=== PATIENT | female | born 1975 | race Two or more races ===

== ENCOUNTER 2024-11-25 14:17 | Emergency (ER) | payer MEDICAID, SELFPAY ==
[2024-11-25 14:35] VITALS: BP 154/97; PULSE 88; RESP 18; TEMP 36.7; O2SAT 99
--- NOTE | 2024-11-25 14:48 | PD.EDRME ---
Rapid Medical Screening Exam RME Arrival date/time: 11/25/24 14:17 Chief Complaint: Vaginal Bleeding Time Seen by Provider: 11/25/24 14:28 Vital signs: Vital Signs Temperature 98.1 F 11/25/24 14:35 Pulse Rate 88 11/25/24 14:35 Respiratory Rate 18 11/25/24 14:35 Blood Pressure 154/97 H 11/25/24 14:35 Pulse Oximetry (%) 99 11/25/24 14:35 Oxygen Delivery Method Room Air 11/25/24 14:35 Vital signs reviewed by provider: Yes RME Narrative: 49-year-old female presents with a 12-day history of severe vaginal bleeding. She is fully soaking a maxi pad, brief and tampon with at least 2-3 times per hour. She is complaining of a headache and feeling overall heaviness. She denies any chance of .
--- NOTE | 2024-11-25 14:49 | XR_ITS ---
Examination: Pelvic ultrasound, transabdominal, complete Technique: Transabdominal ultrasound of the pelvis performed using grayscale imaging Date and time of exam: November 25, 2024 1547 hours INDICATIONS: Vaginal bleeding beginning 12 days ago FINDINGS: Uterus 9.3 cm endometrial stripe 1.7 cm No uterine mass or intrauterine gestation Right ovary 3.3 cm arterial flow 15 mm follicular cyst Left ovary 5.4 cm arterial flow, 5.4 x 3.0 x 4.3 cm simple cyst IMPRESSION: Left ovarian simple cyst 5.4 x 3.0 x 4.3 cm
--- NOTE | 2024-11-25 15:13 | EDNOTE_ITS ---
ED OB Contraction Preg RMI/HPI General Chief complaint: Vaginal Bleeding Stated complaint: SEVERE VAGINAL BLEEDING X 12 DAYS, PASSING CLOTS Time Seen by Provider: 11/25/24 14:28 Arrival date/time: 11/25/24 14:17 49-year-old female presents with a 12-day history of severe vaginal bleeding. She is fully soaking a maxi pad, brief and tampon at least 2-3 times per hour. She is complaining of a headache and feeling overall heaviness. She denies any chance of . Labs including CBC, CMP and urine hCG as well as pelvic ultrasound have been ordered and pending. Mode of arrival: ambulatory Limitations: no limitations RME / HPI RME / HPI Narrative: 49-year-old female presents with a 12-day history of severe vaginal bleeding. She is fully soaking a maxi pad, brief and tampon with at least 2-3 times per hour. She is complaining of a headache and feeling overall heaviness. She denies any chance of . Related Data Previous Rx's ?Medication ?Instructions ?Recorded pantoprazole 40 mg tablet,delayed 40 mg PO QDAY #30 ta bs 08/18/22 release medroxyprogesterone 10 mg tablet 10 mg PO QDAY #10 tab s 11/25/24 (Provera) Allergies Allergy/AdvReac Type Severity Reaction Status Date / Time No Known Allergies Allergy Verified 12/12/24 13:48 Review of Systems Review of Systems Systems Reviewed: All systems reviewed, normal except as documented Past Medical History Past Medical History NEUROLOGIC: Negative Neurological Disorders or Seizures CARDIAC: Negative Cardiac Disorders or Congestive Heart Failure RESPIRATORY: Negative Chronic Obstructive Pulmonary Disease (COPD) GENITOURINARY: Negative Genitourinary Disorders or Renal Disease REPRODUCTIVE: Negative Pelvic Inflammatory Disease MUSCULOSKELETAL: Negative Musculoskeletal Disorders ENDOCRINE: Negative Endocrine Disorders, Diabetes Mellitus Type 1 or Diabetes Mellitus Type 2 HEMATOLOGIC: Positive Blood Disorders and Anemia OTHER HISTORY: Positive Blood Transfusions; Negative Autoimmune Disease, Blood Transfusion Reaction, Anesthesia Reactions, MRSA or Clostridium Difficile Family History FAMILY HISTORY: Positive Family Cardiac Disorders and Family Gastrointestinal Problems (GI BLEED -FATHER); Negative Family Psychiatric Problems Surgical History SURGICAL: Positive Abdominal Surgery (TUMMY TUCK) and Section (X3); Negative Cardiac Surgery, Endocrine Surgery, Ear Surgery, Nephrectomy, Joint Replacement, Neurologic Surgery or Mastectomy Social History SMOKING STATUS: Never smoker SECOND HAND EXPOSURE: No ED Exam Narrative Physical exam: Pleasant 49-year-old female, no acute distress. CV regular rate and rhythm without murmurs, lungs are clear, abdomen is soft with mild pelvic tenderness bilaterally as well as the suprapubic area. Conjunctiva is mildly pale. General Limitations: Present no limitations Course Course Course Narrative: 49-year-old female presents with a 12-day history of severe vaginal bleeding. She is fully soaking a maxi pad, brief and tampon with at least 2-3 times per hour. She is complaining of a headache and feeling overall heaviness. She denies any chance of . Yenifer 49-year-old female, no acute distress. CV regular rate and rhythm without murmurs, lungs are clear, abdomen is soft with mild pelvic tenderness bilaterally as well as the suprapubic area. Conjunctiva is mildly pale. Vital signs blood pressure 134/97, pulse 88, respirations 18, temp 98.1, O2 sat 99% on room air. Labs including CBC, CMP and urine hCG as well as pelvic ultrasound have been ordered and pending. Labs reveal normal white count with a mildly low H&H of 10.6/31.3 with normal platelets CMP is essentially normal. Urine hCG is negative. Pelvic ultrasound reveals Pelvic ultrasound reveals: Left ovarian simple cyst 5.4 x 3.0 x 4.3 cm Quality Measures none Orders Category Date Time Status Miscellaneous Nursing Order NOW Care 11/25/24 14:51 Completed US pelvic complete Stat Exams 11/25/24 14:49 Completed CBC Stat Lab 11/25/24 15:34 Completed CMP [Comprehensive Metabolic Panel] Stat Lab 11/25/24 15:34 Completed HCG Qualitative,Urine Stat Lab 11/25/24 16:19 Completed Vital Signs Vital signs: Vital Signs Temperature 98.1 F 11/25/24 14:35 Pulse Rate 88 11/25/24 14:35 Respiratory Rate 18 11/25/24 14:35 Blood Pressure 154/97 H 11/25/24 14:35 Pulse Oximetry (%) 99 11/25/24 14:35 Oxygen Delivery Method Room Air 11/25/24 14:35 Vaginal Bleeding MDM Narrative MDM Narrative: 49-year-old female presents with a 12-day history of severe vaginal bleeding. She is fully soaking a maxi pad, brief and tampon with at least 2-3 times per hour. She is complaining of a headache and feeling overall heaviness. She denies any chance of . Pleasant 49-year-old female, no acute distress. CV regular rate and rhythm without murmurs, lungs are clear, abdomen is soft with mild pelvic tenderness bilaterally as well as the suprapubic area. Conjunctiva is mildly pale. Labs including CBC, CMP and urine hCG as well as pelvic ultrasound have been ordered and pending. Labs reveal normal white count with a mildly low H&H of 10.6/31.3 with normal platelets CMP is essentially normal. Urine hCG is negative. Pelvic ultrasound reveals: Left ovarian simple cyst 5.4 x 3.0 x 4.3 cm Patient will be discharged with a Provera challenge of 10 mg p.o. daily x 10 days. Patient data External records reviewed:: None Clinical information provided by:: patient Social determinants that could affect healthcare access:: none Patient has the following chronic illnesses:: GERD, previous history of menorrhagia within the past year. How is presenting disease/condition affected by chronic disease/condition?: uneffected by Evaluation data The following diagnostics were reviewed and interpreted by me:: lab results and radiology exam(s) Lab and/or radiology exams considered but not ordered:: None Interpretation Summary: Labs reveal normal white count with a mildly low H&H of 10.6/31.3 with normal platelets CMP is essentially normal. Urine hCG is negative. Pelvic US: FINDINGS: Uterus 9.3 cm endometrial stripe 1.7 cm No uterine mass or intrauterine gestation Right ovary 3.3 cm arterial flow 15 mm follicular cyst Left ovary 5.4 cm arterial flow, 5.4 x 3.0 x 4.3 cm simple cyst IMPRESSION: Left ovarian simple cyst 5.4 x 3.0 x 4.3 cm Medications / Prescriptions Medications or Prescriptions considered but not ordered:: None Medication administrations:: None Consultations Consultation(s) initiated? (list below): No Diagnosis Vaginal Bleeding Differential Diagnosis: dysfunctional uterine bleeding, vaginal bleeding and other (Menorrhagia, perimenopause) Most likely diagnosis given after review of the tests above:: Dysfunctional uterine bleeding secondary to ovarian cyst, menorrhagia Admission Indicated Admission indicated?: not indicated Explain why admission is indicated or not indicated:: Patient is stable for discharge Admission Request Was there a request for admission?: No Admission Attestation Admission request attestation: N/A Disposition Plan Disposition Plan: Discharge Discharge Attestation Discharge Attestation: The patient and all family members were given an opportunity to ask questions and understood the discharge instructions. Discharge instructions specifically effects, indications for sooner follow up or return to the emergency department, and the expected course of current diagnosis. Patient condition: Stable Discharge Plan Plan Patient Disposition: HOME (Self Care) Discharge Disposition comment: Stable Prescriptions/Referrals Prescriptions/Med Rec: New medroxyprogesterone [Provera] 10 mg tablet 10 mg PO QDAY Qty: 10 0RF No Action pantoprazole 40 mg tablet,delayed release (DR/EC) 40 mg PO QDAY Qty: 30 2RF Referrals: No Primary/Family,Physician [Primary Care Provider] - In 1 week Problem List Clinical Impression: Perimenopausal menorrhagia, Dysfunctional uterine bleeding Patient/Caregiver Discharge Instructions Education Materials: ED Dysfunctional Uterine Bleeding Additional Instructions: Follow-up with your primary care physician in 24 to 48 hours. Return to the ED for any new or worsening symptoms. Print Language: [place] Stand Alone Forms: Kathleen Award Info., Patient Portal Info Letter PA/CARY Supervising Physician STEPHANIE/CARY Supervising Physician: Dr. Naylor
[2024-11-25 15:47] LABS: Basophils # (Auto) 0.1 Thou/mm3 (0.0-0.2); Basophils % (Auto) 1 % (0-2.5); Eosinophils # (Auto) 0.1 Thou/mm3 (0.0-0.5); Eosinophils % (Auto) 1 % (0-10); Hematocrit 31.3 % (36.0-46.0); Hemoglobin 10.6 g/dL (12.0-16.0); Immature Granulocytes % (Auto) 0 % (0-0); Immature Granulocytes Auto 0.02 Thou/mm3 (0.00-0.00); Lymphocytes # (Auto) 2.1 Thou/mm3 (1.0-4.8); Lymphocytes % (Auto) 28 % (10-50); Mean Corpuscular HGB Conc 33.9 g/dl (31.0-37.0); Mean Corpuscular Hemoglobin 28.2 pg (25.0-35.0); Mean Corpuscular Volume 83 fL (80-100); Monocytes % (Auto) 13 % (0-12); Neutrophils # (Auto) 4.3 Thou/mm3 (1.8-7.7); Neutrophils % (Auto) 57 % (37-80); Nucleated Red Blood Cell % 0 /100 WBC (0); Platelet Count 254 Thou/mm3 (140-440); RDW Standard Deviation 43.8 fL (36.4-46.3); Red Blood Count 3.76 Miln/mm3 (4.00-5.20); White Blood Count 7.6 Thou/mm3 (3.6-11.0)
[2024-11-25 16:24] LABS: Alanine Aminotransferase 20 U/L (10-49); Albumin, Serum 4.1 gm/dL (3.5-5.0); Albumin/Globulin Ratio 1.5 (1.2-2.2); Alkaline Phosphatase 69 U/L (46-116); Anion Gap 4 (7-16); Aspartate Amino Transferase 23 U/L (0-34); BUN/Creatinine Ratio 14 Ratio (12-20); Bilirubin,Total 0.3 mg/dL (0.3-1.2); Blood Urea Nitrogen 11 mg/dL (9-23); Calcium 8.8 mg/dL (8.3-10.6); Calcium (Corrected) 8.8 mg/dL (8.5-10.1); Carbon Dioxide 26.8 mMol/L (20.0-31.0); Chloride 105 mMol/L (98-107); Creatinine (Component) 0.8 mg/dL (0.6-1.3); Globulin 2.7 gm/dL (2.3-3.5); Glucose 95 mg/dL (74-106); Osmolality,Calculated 271 (275-295); Potassium 3.8 mMol/L (3.4-5.1); Sodium 136 mMol/L (136-145); Total Protein 6.8 gm/dL (5.7-8.2); eGFR > 60 See Note
[2024-11-25 16:55] LABS: HCG Qualitative,Urine Negative
== END 2024-11-25 17:53 | disposition home or self-care (01) ==
PROVIDERS: Physician Assistant; Emergency Provider Family Medicine
DX: N83.292 Other ovarian cyst, left side (principal); N92.4 Excessive bleeding in the premenopausal period
CPT/HCPCS: 36415; 76856; 80053; 81025; 85025; 99284

== ENCOUNTER 2024-12-12 13:45 | Emergency (ER) | payer MEDICAID, SELFPAY ==
[2024-12-12] VITALS (10 sets, daily range): BP systolic 111–134; BP diastolic 59–87; PULSE 69–92; RESP 15–22; TEMP 36.7–37.3; O2SAT 97–100; BMI 26.2
--- NOTE | 2024-12-12 14:17 | XR_ITS ---
Examination: Pelvic ultrasound, transabdominal, complete Technique: Transabdominal ultrasound of the pelvis performed using grayscale imaging Date and time of exam: December 12, 2024 1442 hours INDICATIONS: Vaginal bleeding and tenderness beginning 28 days ago FINDINGS: Uterus 8.0 cm endometrial sign 0.6 cm No uterine mass or intrauterine gestation Right ovary 3.2 cm arterial flow 14 mm follicular cyst Left ovary 3.9 cm arterial flow 16mm follicular cyst IMPRESSION: No uterine mass or intrauterine gestation
--- NOTE | 2024-12-12 14:18 | PD.EDRME ---
Rapid Medical Screening Exam E Arrival date/time: 12/12/24 13:45 49-year-old female with no known medical history presents to the emergency room with a chief complaint of vaginal bleeding x 1 month. Patient is being seen by her CONTROL SYSTEMS DESIGNER who sent her to the emergency room due to a low hemoglobin level. I have greeted and performed a focused initial assessment of this patient. A comprehensive ED assessment and evaluation of the patient, analysis of all test results, and completion of the medical decision making process will be conducted by additional ED providers. Chief Complaint: Vaginal Bleeding Vital signs: Vital Signs Temperature 98.8 F 12/12/24 14:06 Pulse Rate 75 12/12/24 14:06 Respiratory Rate 16 12/12/24 14:06 Blood Pressure 131/81 H 12/12/24 14:06 Pulse Oximetry (%) 99 12/12/24 14:06 Oxygen Delivery Method Room Air 12/12/24 14:06 Vital signs reviewed by provider: Yes
[2024-12-12] MEDS: ONDANSETRON ODT 4 MG TABRAP PO (14:20)
[2024-12-12 16:13] LABS: Alanine Aminotransferase 17 U/L (10-49); Albumin, Serum 4.1 gm/dL (3.5-5.0); Albumin/Globulin Ratio 1.7 (1.2-2.2); Alkaline Phosphatase 56 U/L (46-116); Anion Gap 8 (7-16); Aspartate Amino Transferase 15 U/L (0-34); BUN/Creatinine Ratio 9 Ratio (12-20); Bilirubin,Total 0.4 mg/dL (0.3-1.2); Blood Urea Nitrogen 7 mg/dL (9-23); Calcium 8.3 mg/dL (8.3-10.6); Calcium (Corrected) 8.3 mg/dL (8.5-10.1); Carbon Dioxide 23.2 mMol/L (20.0-31.0); Chloride 109 mMol/L (98-107); Creatinine (Component) 0.8 mg/dL (0.6-1.3); Estimated Creatinine Clearance 86.1 mL/min (>60); Globulin 2.4 gm/dL (2.3-3.5); Glucose 93 mg/dL (74-106); Osmolality,Calculated 277 (275-295); Sodium 140 mMol/L (136-145); Total Protein 6.5 gm/dL (5.7-8.2); eGFR > 60 See Note
[2024-12-12 16:16] LABS: Basophils # (Auto) 0.1 Thou/mm3 (0.0-0.2); Basophils % (Auto) 1 % (0-2.5); Eosinophils # (Auto) 0.1 Thou/mm3 (0.0-0.5); Eosinophils % (Auto) 1 % (0-10); Immature Granulocytes % (Auto) 0 % (0-0); Immature Granulocytes Auto 0.02 Thou/mm3 (0.00-0.00); Lymphocytes % (Auto) 30 % (10-50); Mean Corpuscular HGB Conc 31.2 g/dl (31.0-37.0); Mean Corpuscular Hemoglobin 25.6 pg (25.0-35.0); Mean Corpuscular Volume 82 fL (80-100); Monocytes # (Auto) 0.6 Thou/mm3 (0.0-0.8); Monocytes % (Auto) 9 % (0-12); Neutrophils % (Auto) 59 % (37-80); Nucleated Red Blood Cell # 0.03 Thou/mm3 (0.00-0.00); Nucleated Red Blood Cell % 0 /100 WBC (0); Platelet Count 359 Thou/mm3 (140-440); RDW Standard Deviation 47.1 fL (36.4-46.3); Red Blood Count 2.46 Miln/mm3 (4.00-5.20); White Blood Count 6.8 Thou/mm3 (3.6-11.0)
[2024-12-12 16:22] LABS: Hematocrit 20.2 % (36.0-46.0); Hemoglobin 6.3 g/dL (12.0-16.0)
[2024-12-12 16:35] LABS: Path Review Blood Smear Sent to Pathologist
[2024-12-12 17:12] LABS: HCG,Qualitative Serum Negative
[2024-12-12 17:20] LABS: Partial Thromboplastin Time 22.1 Seconds (22.0-36.0)
[2024-12-12 19:21] LABS: Hematocrit 19.2 % (36.0-46.0); Hemoglobin 5.9 g/dL (12.0-16.0)
--- NOTE | 2024-12-12 20:16 | PD.EDVAGBL ---
ED OB Contraction Preg RMI/HPI General Chief complaint: Vaginal Bleeding Stated complaint: Vaginal bleeding low Hgb per OBGYN Arrival date/time: 12/12/24 13:45 RME / HPI RME / HPI Narrative: 12/12/24 13:45 49-year-old female with no known medical history presents to the emergency room with a chief complaint of vaginal bleeding x 1 month. Patient is being seen by her UNDERGROUND MINE MACHINERY MECHANIC who sent her to the emergency room due to a low hemoglobin level. I have greeted and performed a focused initial assessment of this patient. A comprehensive ED assessment and evaluation of the patient, analysis of all test results, and completion of the medical decision making process will be conducted by additional ED providers. Dr. Santo?s Main ED Evaluation: 49yo female presents to the ED for a chief complaint of vaginal bleeding x 20 days. Patient states she's attempted to make an appointment with her UNDERGROUND MINE MACHINERY MECHANIC due to her persistent vaginal bleeding, but was unable to get an appointment, so she came in for evaluation. Patient reports feeling generally weak. She denies any chest pain, shortness of breath or any other associated symptoms. Patient does report previously needing blood transfusions, her last one being in August. She is not on any control. NKA. Related Data Previous Rx's ?Medication ?Instructions ?Recorded pantoprazole 40 mg tablet,delayed 40 mg PO QDAY #30 tabs 08/18/22 release medroxyprogesterone 10 mg tablet 10 mg PO QDAY #10 tabs 11/25/24 (Provera) Allergies Allergy/AdvReac Type Severity Reaction Status Date / Time No Known Allergies Allergy Verified 12/12/24 13:48 Review of Systems Review of Systems Systems Reviewed: All systems reviewed, normal except as documented Past Medical History Past Medical History NEUROLOGIC: Negative Neurological Disorders or Seizures CARDIAC: Negative Cardiac Disorders or Congestive Heart Failure RESPIRATORY: Negative Chronic Obstructive Pulmonary Disease (COPD) GENITOURINARY: Negative Genitourinary Disorders or Renal Disease REPRODUCTIVE: Negative Pelvic Inflammatory Disease MUSCULOSKELETAL: Negative Musculoskeletal Disorders ENDOCRINE: Negative Endocrine Disorders, Diabetes Mellitus Type 1 or Diabetes Mellitus Type 2 HEMATOLOGIC: Positive Blood Disorders and Anemia OTHER HISTORY: Positive Blood Transfusions; Negative Autoimmune Disease, Blood Transfusion Reaction, Anesthesia Reactions, MRSA or Clostridium Difficile Family History FAMILY HISTORY: Positive Family Cardiac Disorders and Family Gastrointestinal Problems (GI BLEED -FATHER); Negative Family Psychiatric Problems Surgical History SURGICAL: Positive Abdominal Surgery (TUMMY TUCK) and Section (X3); Negative Cardiac Surgery, Endocrine Surgery, Ear Surgery, Nephrectomy, Joint Replacement, Neurologic Surgery or Mastectomy Social History SMOKING STATUS: Never smoker SECOND HAND EXPOSURE: No ED Exam Narrative Physical exam: GENERAL APPEARANCE: AxOx4, generally well-appearing, no acute distress. HEENT: NC, AT. MMM. EOMI, clear conjunctiva, oropharynx clear. NECK: Supple without lymphadenopathy. No stiffness or restricted ROM. HEART: Normal rate and regular rhythm, normal S1/S1, no m/r/g LUNGS: CTAB, moving air well. No crackles or wheezes are heard. ABDOMEN: Soft, nontender, nondistended with good bowel sounds heard. BACK: No midline C/T/L spine pain or deformity, No CVAT, no obvious deformity. EXTREMITIES: Without cyanosis, clubbing or edema. MUSCULOSKELETAL: FROM of all major joints, no chest tenderness NEUROLOGICAL: Grossly nonfocal. Alert and oriented, moving all 4 extremities. CN not formally tested but appear grossly intact. Skin: Warm and dry without any rash. Mild pallor. Course Course Course Narrative: Observation began at 2014 and was necessary in order to monitor the patient while she receives a blood transfusion. Upon reevaluation, observation revealed that the patient should be discharged home. Patient has remained stable while under my care. Observation time ended at 0115. Total time of observation 5 hours. Quality Measures none Orders Category Date Time Status Insert IV NOW Care 12/12/24 18:44 Active Transfuse,blood/blood products NOW Care 12/12/24 18:44 Active US pelvic complete Stat Exams 12/12/24 14:17 Completed Antibody Identification Stat Lab 12/12/24 15:38 Completed CBC Stat Lab 12/12/24 15:38 Completed CMP [Comprehensive Metabolic Panel] Stat Lab 12/12/24 15:38 Completed HCG,Qualitative Serum Stat Lab 12/12/24 15:38 Completed Hemoglobin and Hematocrit Stat Lab 12/12/24 18:58 Completed PT [Prothrombin Time with INR] Stat Lab 12/12/24 15:38 Completed PTT [Partial Thromboplastin Time] Stat Lab 12/12/24 15:38 Completed Path Review Blood Smear Stat Lab 12/12/24 15:38 Completed Type and Screen Stat Lab 12/12/24 15:38 Completed prbc [Red Blood Cells] Stat Lab 12/12/24 15:38 Completed Ondansetron Odt [Zofran Odt] Med 12/12/24 14:13 Discontinued 4 mg PO X1 ONE Vital Signs Vital signs: Vital Signs Temperature 98.8 F 12/12/24 14:06 Pulse Rate 75 12/12/24 14:06 Respiratory Rate 16 12/12/24 14:06 Blood Pressure 131/81 H 12/12/24 14:06 Pulse Oximetry (%) 99 12/12/24 14:06 Oxygen Delivery Method Room Air 12/12/24 14:06 Vaginal Bleeding MDM Narrative MDM Narrative: Scribe Attestation: 12/12/24 - Cecelia Amaya am scribing for and in the presence of Dr. Santo. Patient data External records reviewed:: [facility] previous records (Per chart review, patient was seen here on 11/25/24 for dysfunctional uterine bleeding.) Clinical information provided by:: patient Social determinants that could affect healthcare access:: none Patient has the following chronic illnesses:: none How is presenting disease/condition affected by chronic disease/condition?: no chronic disease Evaluation data The following diagnostics were reviewed and interpreted by me:: lab results and radiology exam(s) Lab and/or radiology exams considered but not ordered:: none Interpretation Summary: HnH is low at 5.9/19.2, Platelets are normal, PT and INR are normal, PTT is normal, CMP is normal, HCG is negative, according to my interpretation. ------- [place] [facility] Report Signed Patient: CHIOMA DENNIS. Record#: [id number] Birthdate: 1975 Age/Sex: 49 / F Location: [facility] Attending Dr: Ordering Physician: Gabe Najera Date of Service: 12/12/24 Procedure(s): US pelvic complete Accession Number(s): [id number] cc: Gabe Najera; Guzman Harrison MD~ Examination: Pelvic ultrasound, transabdominal, complete Technique: Transabdominal ultrasound of the pelvis performed using grayscale imaging Date and time of exam: December 12, 2024 1442 hours INDICATIONS: Vaginal bleeding and tenderness beginning 28 days ago FINDINGS: Uterus 8.0 cm endometrial sign 0.6 cm No uterine mass or intrauterine gestation Right ovary 3.2 cm arterial flow 14 mm follicular cyst Left ovary 3.9 cm arterial flow 16mm follicular cyst IMPRESSION: No uterine mass or intrauterine gestation Dictated By: Guzman Harrison MD Signed By: <Electronically signed by Guzman Harrison MD in OV> 12/12/24 1507 Medications / Prescriptions Medications or Prescriptions considered but not ordered:: none Medication administrations:: Medication Administration History Discontinued Medications Ondansetron HCl (Ondansetron Odt 4 Mg Tabrap) 4 mg PO X1 ONE; Protocol Stop: 12/12/24 14:14 Last Admin: 12/12/24 14:20 Dose: 4 mg Documented By: see above Consultations Consultation(s) initiated? (list below): No Diagnosis Vaginal Bleeding Differential Diagnosis: ectopic without intrauterine and other (anemia, DUB, ) Most likely diagnosis given after review of the tests above:: see clinical impression below Admission Indicated Admission indicated?: not indicated Admission Request Was there a request for admission?: No Disposition Plan Disposition Plan: Discharge Discharge Attestation Discharge Attestation: The patient and all family members were given an opportunity to ask questions and understood the discharge instructions. Discharge instructions specifically effects, indications for sooner follow up or return to the emergency department, and the expected course of current diagnosis. Patient condition: Stable Discharge Plan Plan Patient Disposition: HOME (Self Care) Prescriptions/Referrals Prescriptions/Med Rec: No Action pantoprazole 40 mg tablet,delayed release (DR/EC) 40 mg PO QDAY Qty: 30 2RF medroxyprogesterone [Provera] 10 mg tablet 10 mg PO QDAY Qty: 10 0RF Referrals: No Primary/Family,Physician [Primary Care Provider] - In 1 week Problem List Clinical Impression: Menometrorrhagia, Dysfunctional uterine bleeding, Anemia Patient/Caregiver Discharge Instructions Education Materials: ED Anemia Type Not Specified, ED Dysfunctional Uterine Bleeding, ED Heavy Menstrual Bleeding Additional Instructions: Follow-up with your UNDERGROUND MINE MACHINERY MECHANIC in 1 to 2 days for recheck. You can return to the emergency department sooner if symptoms worsen or if you notice any new, concerning issues. Print Language: Citizen Of [place] Stand Alone Forms: Kathleen Award Info., Patient Portal Info Letter
[2024-12-13 01:00] VITALS: BP 125/85; PULSE 95; RESP 16; TEMP 2.7; TEMP 36.8; O2SAT 99
[2024-12-13 01:05] VITALS: BP 120/60; PULSE 91; RESP 16; TEMP 36.8; O2SAT 100
== END 2024-12-13 01:22 | disposition home or self-care (01) ==
PROVIDERS: Nurse Practitioner Family; Nurse Practitioner Primary Care; Emergency Provider Family Medicine
DX: N92.1 Excessive and frequent menstruation with irregular cycle (principal); D64.9 Anemia, unspecified; N93.8 Other specified abnormal uterine and vaginal bleeding
CPT/HCPCS: 36415; 36430; 76856; 80053; 84703; 85014; 85018; 85025; 85610; 85730; 86850; 86870; 86900; 86901; 86902; 86921; 86922; 99285; P9016; Q0162